=== PATIENT | male | born 1955 | race Caucasian/White ===

== ENCOUNTER 2024-06-08 05:50 | Observation (INO) | payer MEDICARE ==
[2024-06-06 11:17] LABS: ALBUMIN 4.3 g/dL (3.5-5.0)
[2024-06-06 11:18] LABS: APPEARANCE,URINE CLEAR (CLEAR); BILIRUBIN,URINE NEGATIVE (NEGATIVE); COLOR,URINE LIGHT-YELLOW (YELLOW); GLUCOSE, URINE (UA) NEGATIVE (NEGATIVE); KETONES,URINE NEGATIVE (NEGATIVE); LEUKOCYTE ESTERASE ,URINE NEGATIVE Leu/uL (NEGATIVE); NITRATE,URINE NEGATIVE (NEGATIVE); OCCULT BLOOD,URINE NEGATIVE (NEGATIVE); PH,URINE 6.5 (5.0-8.0); PROTEIN,URINE NEGATIVE (NEGATIVE); UROBILINOGEN,URINE 0.2 mg/dL (0.2-1.0)
[2024-06-06 11:20] LABS: ADD UA MICROSCOPIC NO
[2024-06-06 12:07] VITALS: BP 86/58; PULSE 102; RESP 20; TEMP 97.6
[~2024-06-08] VITALS: Ht 182.9 cm; Wt 88.8 kg
[2024-06-08] VITALS (25 sets, daily range): BP systolic 82–172; BP diastolic 40–120; PULSE 70–114; RESP 15–20; TEMP 97.4–99.1
[~2024-06-08 05:50] MED LIST: ALPR1TAB7 PO; ALPR2TAB9 PO; BIOT5000 PO; COQ10 PO; DOCU100C33 PO; ESOM40CA66 PO; FENO145T26 PO; FLUO20CA30 PO; GLUCOSAMINE CHOND PO; LAMO200T51 PO; LORA10TA7 PO; METF-526 PO; OLAN15TA36 PO; OLME40TA18 PO; POTA2TAB6 PO; QUET100T34 PO; SEMA2PEN SQ; SUMATRIPTAN PO; TOPI100T37 PO; [UNRECOGNIZED DRUG - OTHER] PO
[2024-06-08] MEDS: hydroMORPHone 1 MG INJ ONE (06:54)
[2024-06-08] MEDS: proPOFol 10 MG/ML 20ML VIAL IV ONE (06:54)
[2024-06-08] MEDS: MIDAZOLAM HCL 1 MG/ML 2ML VIAL ONE (06:54)
[2024-06-08] MEDS: FENTanyl CITRate PF 50 MCG/1 ML 2ML VIAL ONE (06:54)
[2024-06-08] MEDS: LIDOCAINE PF 100MG/5ML (2%) SYRINGE 5ML ONE (06:55)
[2024-06-08] MEDS ORDERED: SUCCINYLCHOLINE CHLORIDE 20 MG/ML 10 ML VIAL ONE (06:57)
[2024-06-08] MEDS ORDERED: GLYCOPYRROLATE 0.2 MG/ML 5 ML VIAL ONE (06:57)
[2024-06-08] MEDS ORDERED: rocuRONium bROMide 10MG/1ML 5ML VL ONE ×2 (06:58→08:31)
[2024-06-08] MEDS ORDERED: phenylEPHRINE HCL 10 MG/ML 1ML VIAL IV ONE ×2 (07:03→09:29)
[2024-06-08] MEDS ORDERED: ePHEDrine SULFate 50 MG/ML AMPULE ONE (07:03)
[2024-06-08] MEDS ORDERED: ROPivacaine 0.5% 5MG/ML 30ML ONE (07:06)
[2024-06-08] MEDS: SUGAMMADEX SODIUM 200 MG/2 ML VIAL IV ONE (07:08)
[2024-06-08] MEDS: 0.9%NACL 1000ML 1,000 ML IV ONE (07:19)
[2024-06-08] MEDS: CLINDAMYCIN IVPB 900MG/50ML 50 ML IV ONE (07:19)
[2024-06-08] MEDS: TRANEXAMIC ACID 1000MG/10ML IV ONE (08:05)
[2024-06-08] MEDS ORDERED: TRANEXAMIC ACID 1000MG/10ML ONE (08:07)
[2024-06-08] MEDS: acetaMINOPHEN 1,000 MG/100 ML VIAL IV ONE (08:09)
[2024-06-08] MEDS ORDERED: ondanSETRON 4MG INJ ONE (09:46)
[2024-06-08] MEDS ORDERED: dexaMETHasone SOD PHOSPHATE 10MG/ML 1ML VIAL ONE (09:46)
[2024-06-08] MEDS: NALoxone HCL 0.4 MG/1 ML ML ONE (10:56)
[2024-06-08] MEDS ORDERED: ondanSETRON 4MG INJ IVP PRN (11:00)
[2024-06-08] MEDS ORDERED: FERROUS FUMARATE 324 MG TABLET PO PRN (11:00)
[2024-06-08] MEDS ORDERED: CYCLOBENZAPRINE HCL 10 MG TABLET PO PRN (11:00)
[2024-06-08] MEDS ORDERED: PoTASSium chloRIDE 20MEQ/100ML 100 ML IV PRN (11:00)
[2024-06-08] MEDS ORDERED: CALCIUM CARB 500MG PO PRN (11:00)
[2024-06-08] MEDS ORDERED: PoTASSium chl 10% ELIXIR 20MEQ 20 MEQ/15 ML UDCUP PO PRN (11:00)
[2024-06-08] MEDS: ketOROlac 15MG/ML VIAL (15MG/ML) ONE (11:29)
[2024-06-08] MEDS: ketOROlac 15MG/ML VIAL (15MG/ML) IV SCH (11:29)
[2024-06-08] MEDS: INSULIN humuLIN R 100 UNIT/ML 3ML SQ SCH (11:30)
[2024-06-08] MEDS: ePHEDrine SULFate 50 MG/ML AMPULE ONE (12:13)
[2024-06-08] MEDS: 0.9%NACL 1000ML 1,000 ML IV SCH (12:14)
[2024-06-08] MEDS ORDERED: queTIAPine fuMARate 100 MG TAB PO PRN (16:30)
[2024-06-08] MEDS: GABApentin 100 MG CAPSULE PO SCH (16:35)
[2024-06-08] MEDS: ceFAZolin SODIUM 2 GM VIAL IVPB SCH (16:35)
[2024-06-08] MEDS: HYDROcodone/APAP 5/325 1 TAB TABLET PO PRN (16:37)
[2024-06-08] MEDS ORDERED: SUMATRIPTAN SUCCINATE 25 MG PO PRN (18:00)
[2024-06-08] MEDS: doCUSate SODIUM 100 MG CAP PO SCH (20:19)
[2024-06-08] MEDS: FENOFIBRATE NANOCRYSTALLIZED 145 MG TAB PO SCH (20:19)
[2024-06-08] MEDS: OLANZAPINE 30 MG PO SCH (20:19)
[2024-06-09] VITALS: BP 142/75; PULSE 120; RESP 18; TEMP 99.3
[2024-06-09 03:52] LABS: HEMATOCRIT 30.5 % (42-54); MEAN CORPUSCULAR HEMOGLOBIN 26.8 pg (27.0-33.0); MEAN CORPUSCULAR HGB CONC 32.5 g/dL (32.0-36.0); MEAN CORPUSCULAR VOLUME 82.7 fL (79-99); RED BLOOD CELL COUNT(AUTO) 3.69 MIL/uL (4.50-6.20); RED CELL DISTRIBUTION WIDTH 14.5 % (11.0-15.5); WHITE BLOOD COUNT (AUTO) 6.5 K/uL (4.8-10.8)
[2024-06-09 04:00] VITALS: BP 118/64; PULSE 116; RESP 18; TEMP 99.4
[2024-06-09 04:01] LABS: CREATININE 1.3 mg/dL (0.5-1.3); POTASSIUM 3.4 mmol/L (3.5-5.1)
[2024-06-09 08:00] VITALS: BP 121/67; PULSE 115; RESP 19; TEMP 100.1; O2SAT 96
[2024-06-09] MEDS ORDERED: doCUSate SODIUM 100 MG CAP PO SCH (09:00)
[2024-06-09] MEDS: Potassium Gluconate 90 MG PO SCH (09:00)
[2024-06-09] MEDS: BIOTIN 10000 MCG PO SCH (09:00)
[2024-06-09] MEDS: [UNRECOGNIZED DRUG - OTHER] PO SCH (09:00)
[2024-06-09] MEDS: COQ10 PO SCH (09:00)
[2024-06-09] MEDS: Olmesartan 40 MG PO SCH (09:00)
[2024-06-09] MEDS: GLUCOSAMINE CHOND PO SCH (09:00)
[2024-06-09] MEDS: metFORmin HCL 500 MG TAB.SR.24H PO SCH (09:08)
[2024-06-09] MEDS: LORATAdine 10 mg 10 MG TABLET PO SCH (09:08)
[2024-06-09] MEDS: laMOTRigine 100 MG TABLET PO SCH (09:08)
[2024-06-09] MEDS: topIRAMate 100 MG TAB PO SCH (09:08)
[2024-06-09] MEDS: ASPIRIN 325MG EC TAB PO SCH (09:09)
[2024-06-09] MEDS: FLUoxetine HCL 20 MG CAPSULE PO SCH (09:09)
[2024-06-09] MEDS: PANTOPrazole 40 MG TAB DR PO SCH (09:09)
[2024-06-09] MEDS: polyETHYLene GLYCol 3350 17 GM POWD.PACK PO SCH (09:10)
[2024-06-09] MEDS ORDERED: ketOROlac 15MG/ML VIAL (15MG/ML) IV PRN (11:00)
[2024-06-09] MEDS: PoTASSium chloRIDE 20MEQ ER 20 MEQ ERTAB PO PRN (12:48)
[2024-06-09 20:00] VITALS: BP 124/64; PULSE 114; RESP 20; TEMP 98.7; O2SAT 99
[2024-06-10] VITALS (7 sets, daily range): BP systolic 114–142; BP diastolic 54–78; PULSE 74–114; RESP 19–20; TEMP 98.5–99.7; O2SAT 96–99
[2024-06-10] MEDS: hydrOXYzine 10 MG TABLET PO ONE (08:30)
[2024-06-10] MEDS: ALPRAZolam 1 MG TAB PO PRN (11:16)
[2024-06-10] MEDS: GABApentin 100 MG CAPSULE PO SCH (13:49)
[2024-06-10 17:35] LABS: BASOPHILS # (AUTO) 0.02 K/uL (0.00-0.20); BASOPHILS % (AUTO) 0.3 % (0.0-5.0); EOSINOPHILS # (AUTO) 0.04 K/uL (0.00-0.70); EOSINOPHILS % (AUTO) 0.6 % (0.0-8.0); IMMATURE GRANULOCYTE ABSOLUTE 0.03 K/uL (0-1); LYMPHOCYTES # (AUTO) 1.3 K/uL (1.0-4.8); LYMPHOCYTES % (AUTO) 18.6 % (21.0-51.0); MEAN CORPUSCULAR HEMOGLOBIN 27.7 pg (27.0-33.0); MEAN CORPUSCULAR HGB CONC 32.5 g/dL (32.0-36.0); MEAN CORPUSCULAR VOLUME 85.1 fL (79-99); MONOCYTES # (AUTO) 0.7 K/uL (0.1-1.0); MONOCYTES % (AUTO) 9.9 % (3.0-13.0); NEUTROPHILS % (AUTO) 70.2 % (40.0-77.0); PLATELET COUNT (AUTO) 180 K/uL (130-400); RED BLOOD CELL COUNT(AUTO) 3.29 MIL/uL (4.50-6.20); RED CELL DISTRIBUTION WIDTH 14.8 % (11.0-15.5); WHITE BLOOD COUNT (AUTO) 7.2 K/uL (4.8-10.8)
[2024-06-11 00:10] VITALS: BP 133/81; PULSE 117; RESP 24; TEMP 100.2
[2024-06-11 00:45] VITALS: TEMP 99.5
[2024-06-11 03:34] VITALS: BP 140/80; PULSE 108; RESP 20; TEMP 99.3
[2024-06-11 08:00] VITALS: BP 120/70; PULSE 113; RESP 13; TEMP 98.9; O2SAT 99
[2024-06-11] MEDS: traMADol HCL 50 MG TABLET PO PRN (08:14)
[2024-06-11 10:26] LABS: BASOPHILS # (AUTO) 0.05 K/uL (0.00-0.20); BASOPHILS % (AUTO) 0.6 % (0.0-5.0); EOSINOPHILS # (AUTO) 0.14 K/uL (0.00-0.70); EOSINOPHILS % (AUTO) 1.6 % (0.0-8.0); HEMATOCRIT 33.1 % (42-54); IMMATURE GRANULOCYTE ABSOLUTE 0.03 K/uL (0-1); LYMPHOCYTES # (AUTO) 1.7 K/uL (1.0-4.8); MEAN CORPUSCULAR HEMOGLOBIN 27.1 pg (27.0-33.0); MEAN CORPUSCULAR HGB CONC 32.9 g/dL (32.0-36.0); MEAN CORPUSCULAR VOLUME 82.3 fL (79-99); MONOCYTES # (AUTO) 0.7 K/uL (0.1-1.0); MONOCYTES % (AUTO) 7.7 % (3.0-13.0); NEUTROPHILS # (AUTO) 6.3 K/uL (1.8-7.7); NEUTROPHILS % (AUTO) 70.8 % (40.0-77.0); PLATELET COUNT (AUTO) 236 K/uL (130-400); RED BLOOD CELL COUNT(AUTO) 4.02 MIL/uL (4.50-6.20); RED CELL DISTRIBUTION WIDTH 14.3 % (11.0-15.5)
[2024-06-11] MEDS ORDERED: BisaCODYL 10 MG SUPP.RECT RC PRN (11:00)
[2024-06-11 12:00] VITALS: BP 132/71; PULSE 118; RESP 15; TEMP 99.8
[2024-06-11] MEDS ORDERED: HYDR-4060 PO (14:18)
[2024-06-11] MEDS ORDERED: DOCU-116 PO (14:18)
[2024-06-11] MEDS ORDERED: ASPI-891 PO (14:18)
[2024-06-11] MEDS ORDERED: HYDROcodone/APAP 5/325 1 TAB TABLET PO PRN ×2 (15:00)
[2024-06-11 16:00] VITALS: BP 123/75; PULSE 117; RESP 16; TEMP 98.6
[2024-06-15] MEDS ORDERED: Semaglutide (Ozempic) 2 MG SQ SCH (09:00)
== END 2024-06-11 17:52 ==
LOC: DAH 05:50 → DAHIP 05:51 → 4AH 11:25
PROVIDERS: ADMIT Student in an Organized Health Care Education/Training Program; ATTEND Student in an Organized Health Care Education/Training Program
DX: M16.12 Unilateral primary osteoarthritis, left hip (principal); G89.18 Other acute postprocedural pain; D62 Acute posthemorrhagic anemia; J45.909 Unspecified asthma, uncomplicated; I10 Essential (primary) hypertension; K21.9 Gastro-esophageal reflux disease without esophagitis; E66.01 Morbid (severe) obesity due to excess calories; F31.9 Bipolar disorder, unspecified; F41.9 Anxiety disorder, unspecified; G89.29 Other chronic pain; E11.9 Type 2 diabetes mellitus without complications; Z79.899 Other long term (current) drug therapy; Z79.84 Long term (current) use of oral hypoglycemic drugs; Z68.26 Body mass index [BMI] 26.0-26.9, adult
CPT/HCPCS: 36415; 36430; 71045; 73503; 73521; 80048; 81003; 82040; 82948; 84134; 85025; 85027; 86140; 86850; 86900; 86901; 86923; 87086; 87641; 93005; 96365; 96366; 96375; 96376; C1776; G0378; J0330; J1100; J1170; J1885; J2001; J2250; J2310; J2371; J2405; J2704; J2795; J3010; J3490; J7030; P9016; A4215; A4216; A4221; A4222; A4223; A4649; A4663; A4930; A5120; A6255; G0168; J0690

== ENCOUNTER 2024-09-26 07:49 | Observation (INO) | payer MEDICARE ==
[2024-09-21 10:26] LABS: BASOPHILS # (AUTO) 0.06 K/uL (0.00-0.20); BASOPHILS % (AUTO) 1.9 % (0.0-5.0); EOSINOPHILS # (AUTO) 0.18 K/uL (0.00-0.70); EOSINOPHILS % (AUTO) 5.8 % (0.0-8.0); HEMATOCRIT 41.3 % (42-54); IMMATURE GRANULOCYTE ABSOLUTE 0.01 K/uL (0-1); LYMPHOCYTES # (AUTO) 1.2 K/uL (1.0-4.8); LYMPHOCYTES % (AUTO) 37.7 % (21.0-51.0); MEAN CORPUSCULAR HEMOGLOBIN 27.2 pg (27.0-33.0); MEAN CORPUSCULAR HGB CONC 31.7 g/dL (32.0-36.0); MEAN CORPUSCULAR VOLUME 85.7 fL (79-99); MONOCYTES # (AUTO) 0.3 K/uL (0.1-1.0); NEUTROPHILS # (AUTO) 1.4 K/uL (1.8-7.7); NEUTROPHILS % (AUTO) 44.3 % (40.0-77.0); PLATELET COUNT (AUTO) 232 K/uL (130-400); RED BLOOD CELL COUNT(AUTO) 4.82 MIL/uL (4.50-6.20); RED CELL DISTRIBUTION WIDTH 14.8 % (11.0-15.5); WHITE BLOOD COUNT (AUTO) 3.1 K/uL (4.8-10.8)
[2024-09-21 10:34] VITALS: BP 130/69; PULSE 64; RESP 18; TEMP 97.7
[2024-09-21 10:35] LABS: INR 1.02 (0.85-1.15)
[2024-09-21 10:37] LABS: PARTIAL THROMBOPLASTIN TIME 27.3 SEC (26.3-35.5)
[2024-09-21 11:07] LABS: CREATININE 1.2 mg/dL (0.5-1.3); POTASSIUM 4.4 mmol/L (3.5-5.1)
--- NOTE | 2024-09-21 15:03 | EKG ---
[facility] Test Date: 2024-09-21 Test Time: 11:04:41 Pat Name: HUMBERTO ESCALERA Department: [facility] Room: Gender: M Mill Feeder: [id number] : 1955 Requested By: KAROL PEREZ Order Number: [id number] Reading MD: Jacek Tamez Measurements Intervals Dearing Rate: 86 P: 43 DE: 198 QRS: -1 QRSD: 80 T: 54 QT: 358 QTc: 428 Interpretive Statements Normal sinus rhythm Compared to ECG 06/11/2024 10:54:37 Sinus tachycardia no longer present Electronically Signed On 09-22-2024 14:08:21 PHYTOCHEMISTRY PROFESSOR by Jacek Tamez Please click the below link to view image of tracing.
[~2024-09-26] VITALS: Ht 180.3 cm; Wt 97.4 kg
[2024-09-26] VITALS (28 sets, daily range): BP systolic 103–149; BP diastolic 48–97; PULSE 60–107; RESP 12–20; TEMP 97–98.6; O2SAT 98
[~2024-09-26 07:49] MED LIST changes: +ACET-2247 PO; -ALPR2TAB9 PO; -COQ10 PO; +FERS325 PO; +GABA-529 PO; +GLUC-268 PO; -GLUCOSAMINE CHOND PO; +METF-446 PO; -METF-526 PO; +MVIT PO; +NAPR220C62 PO; -OLAN15TA36 PO; +OLAN15TA98 PO; +SUMA50TA17 PO; -SUMATRIPTAN PO; +UBID10CA6 PO; +VALB80CA PO; -[UNRECOGNIZED DRUG - OTHER] PO
[2024-09-26] MEDS: ceFAZolin SODIUM 1 GM VIAL ONE (08:13)
[2024-09-26] MEDS: 0.9%NACL 1000ML 1,000 ML IV ONE (08:31)
[2024-09-26] MEDS: FAMOTIDINE 20MG VIAL IV ONE (08:46)
[2024-09-26] MEDS: acetaMINOPHEN 100 ML ONE (08:46)
[2024-09-26] MEDS ORDERED: ROPivacaine 0.5% 5MG/ML 30ML ONE (08:47)
[2024-09-26] MEDS ORDERED: ketaMINE HCL 100 MG/ML 5ML VIAL IJ ONE (08:47)
[2024-09-26] MEDS ORDERED: LIDOCAINE PF 100MG/5ML (2%) SYRINGE 5ML ONE (08:51)
[2024-09-26] MEDS ORDERED: rocuRONium bROMide 10MG/1ML 5ML VL ONE ×2 (08:52→09:39)
[2024-09-26] MEDS ORDERED: FENTanyl CITRate PF 50 MCG/1 ML 2ML VIAL ONE (08:52)
[2024-09-26] MEDS ORDERED: proPOFol 10 MG/ML 20ML VIAL IV ONE (08:52)
[2024-09-26] MEDS ORDERED: dexaMETHasone SOD PHOSPHATE 10MG/ML 1ML VIAL ONE (09:22)
[2024-09-26] MEDS ORDERED: ondanSETRON 4MG INJ ONE (09:22)
[2024-09-26] MEDS: TRANEXAMIC ACID 1000MG/10ML ONE ×2 (09:25→11:30)
[2024-09-26] MEDS ORDERED: PoTASSium chl 10% ELIXIR 20MEQ 20 MEQ/15 ML UDCUP PO PRN (09:30)
[2024-09-26] MEDS ORDERED: ALPRAZolam 1 MG TAB PO PRN (09:30)
[2024-09-26] MEDS: ceFAZolin SODIUM 2 GM VIAL ONE (09:30)
[2024-09-26] MEDS ORDERED: FERROUS FUMARATE 324 MG TABLET PO PRN (09:30)
[2024-09-26] MEDS ORDERED: PoTASSium chloRIDE 20MEQ ER 20 MEQ ERTAB PO PRN (09:30)
[2024-09-26] MEDS ORDERED: PoTASSium chloRIDE 20MEQ/100ML 100 ML IV PRN (09:30)
[2024-09-26] MEDS ORDERED: ondanSETRON 4MG INJ IVP PRN (09:30)
[2024-09-26] MEDS ORDERED: CALCIUM CARB 500MG PO PRN (09:30)
[2024-09-26] MEDS ORDERED: DiphenhydrAMINE HCL 50 MG/ML VIAL IVP PRN (09:30)
[2024-09-26] MEDS: 0.9%NACL 1000ML 1,000 ML IV SCH (09:30)
[2024-09-26] MEDS ORDERED: phenylEPHRINE HCL 10 MG/ML 1ML VIAL IV ONE (09:44)
[2024-09-26] MEDS ORDERED: GLYCOPYRROLATE 0.2 MG/ML 5 ML VIAL ONE (11:31)
[2024-09-26] MEDS ORDERED: NEOSTIGMINE METHYLSULFATE 1MG/ML IV ONE (11:31)
--- NOTE | 2024-09-26 12:21 | OP ---
Operative Note: DATE OF PROCEDURE: 09/26/24 SURGEON: KAROL PEREZ MD INJURY/SAFETY HAZARD ASSESSMENT: Federico Castro and Hue Tafoya ANESTHESIA: General and fascia iliaca block ANESTHESIOLOGIST/CLINICAL RESOURCE MANAGER: Nyasia Jordan PREOPERATIVE DIAGNOSIS: Right hip osteoarthritis POSTOPERATIVE DIAGNOSIS: Right hip osteoarthritis PROCEDURE: Right total hip arthroplasty ESTIMATED BLOOD LOSS: 200 cc INDICATIONS: 68-year-old male with history of bilateral hip osteoarthritis failing conservative management. Patient previously underwent left total hip arthroplasty and did well from this. Patient was seen in clinic and discussed moving on to right total hip arthroplasty. After discussion of the risks, benefits, and alternatives, the patient voluntarily agreed to undergo the aforementioned procedure. IMPLANTS: Bowman and Nephew 56 mm acetabular shell with 6.5 screws x2 central hole cover. 40 mm Oxinium head with a minus four sleeve on anthology size 8 standard offset stem DESCRIPTION OF PROCEDURE: Patient was properly identified in the preoperative holding area. Surgical site marking was verified and surgery consent reviewed. The patient was then taken to the operating room and placed in supine position on the OR table. After induction of general anesthesia, preoperative antibiotics were given. The patient was then transitioned in the lateral decubitus position with the right side up. All bony prominences were well-padded. Right lower extremity was then prepped and draped in the usual sterile fashion. Surgical time out was done verifying correct surgery, side, site, and location to be performed. We then began the procedure by making approximately 15 cm long incision centered over the greater trochanter. Here we came sharply through skin down to the fascia. Hemostasis was then achieved using Bovie electrocautery. We then incised fascia in line with the skin incision and finger split the tensor muscle proximally. We then placed our Charnley retractor. At this point we identified the vastus ridge and began elevating the full-thickness soft tissue flap off of the vastus ridge, splitting the vastus lateralis and gluteus muscles as necessary. We then proceeded to externally rotate the femur while making this flap. We resected part of the anterior capsule. The femoral head and neck was then delivered into view. We then dislocated the hip and performed a femoral neck osteotomy approximately half fingerbreadth proximal lesser trochanter. We then placed our retractors around the superior and anterior portion of the acetabulum and began to remove the labrum circumferentially. We then began reaming the acetabulum where we reamed up to a size 56 ensuring appropriate anteversion and abduction. We then proceeded to trial with the size 56 acetabular component and this appeared to sit well. We opened our size 56 acetabular component and after irrigating out the wound malleted this into place. It appeared to have good press-fit however we elected to place 6.5 screws x2. We drilled and filled the screws in standard fashion in the posterior superior portion of the cup. We then placed the manhole cover on the center of the cup. The wound was thoroughly irrigated out further and we placed the acetabular liner and impacted this in place in standard fashion. We then proceeded to reposition our retractors to elevate the proximal femur out of the wound. We then used the box chisel and canal finder to began preparing the femoral side and sequentially broached up to the aforementioned size stem. Once we felt we had good fit, fill, and control of the femur with the stem in place we then used our trial head component and reduce the hip. However we noticed this to be longer than the contralateral side, so we dislocated the hip and trialed once more using the minus option for the femoral head. Upon reduction, we had appropriate soft tissue tensioning, limb length and stable range of motion. We therefore dislocated the hip once more removed our trial components, thoroughly irrigated the out the wound, and placed our final components in standard fashion. The hip was then reduced with the final components in place. It was found to be stable through range of motion with appropriate soft tissue tensioning and appropriate limb length. At this point we placed a bump under the knee and the foot on the male with a stack of towels to allow for internal rotation. We repaired the abductors back to the greater trochanter using #5 Ethibond. We then repaired the rent in the vastus lateralis and gluteus muscles using #1 Vicryl in a running fashion. We removed our Charnley retractor and began to repair the IT band using #1 Vicryl in interrupted etxian-nc-qowee fashion. At this point we began to close her subcutaneous tissue using 2-0 Vicryl. Running 3-0 Monocryl in subcuticular fashion with Dermabond placed over this for the skin. Island barrier dressing was then applied. Patient was returned to supine position, awakened from anesthesia, and taken to the recovery room in stable condition. KAROL PEREZ MD Sep 26, 2024 12:21
[2024-09-26] MEDS: MEPERIDINE-PF 25 MG/ML SYG ONE (13:04)
[2024-09-26] MEDS: ketOROlac 15MG/ML VIAL (15MG/ML) IV SCH (13:07)
[2024-09-26] MEDS: ketOROlac 15MG/ML VIAL (15MG/ML) ONE (13:10)
[2024-09-26] MEDS: HYDROcodone/APAP 5/325 1 TAB TABLET PO PRN (14:32)
[2024-09-26] MEDS: GABApentin 100 MG CAPSULE PO SCH (14:39)
[2024-09-26] MEDS: ceFAZolin SODIUM 2 GM VIAL IVP SCH (14:41)
--- NOTE | 2024-09-26 16:40 | NUR ---
ORTHO COORDINATOR: TEACHING REGARDING DVT AND PNEUMONIA PREVENTION, PAIN MANAGEMENT AND PAIN EXPECTATIONS. PATIENT IN BED. SIGNIFICANT OTHER AT BEDSIDE. INCENTIVE SPIROMETER ON BEDSIDE TRAY AND B SCD SLEEVES IN PLACE AND FUNCTIONING. PATIENT RATES CURRENT PAIN 7/10. RECENTLY PROVIDED PAIN MEDICATION. DISCUSSED WITH PATIENT FINDING THE RIGHT COMBINATION BETWEEN OF MEDICATIONS. PATIENT VERBALIZED UNDERSTANDING. 1645 PAIN OF 7/10 REPORTED TO PRIMARY NURSE. PRIMARY NURSE ACKNOWLEDGED COMMUNICATION.
--- NOTE | 2024-09-26 17:10 | HMCIMG ---
HIP UNILAT 4VW RIGHT REASON: RT TOTAL HIP ARTHROPLASTY. COMPARISON: None TECHNIQUE: Fluoroscopic images of right hip were obtained. FINDINGS: Please see procedure report by referring physician. IMPRESSION: Intraoperative films.
[2024-09-26] MEDS: metFORmin HCL 500 MG TABLET PO SCH (20:54)
[2024-09-26] MEDS: FENOFIBRATE NANOCRYSTALLIZED 145 MG TAB PO SCH (20:54)
[2024-09-26] MEDS: doCUSate SODIUM 100 MG CAP PO SCH (20:54)
[2024-09-26] MEDS: ASPIRIN 325MG TAB PO SCH (20:54)
[2024-09-26] MEDS: OLANZAPINE 30 MG PO SCH (21:00)
[2024-09-27 04:00] VITALS: BP 129/76; PULSE 81; RESP 16; TEMP 99
[2024-09-27 05:41] LABS: HEMATOCRIT 28.5 % (42-54); MEAN CORPUSCULAR HEMOGLOBIN 27.4 pg (27.0-33.0); MEAN CORPUSCULAR HGB CONC 32.3 g/dL (32.0-36.0); MEAN CORPUSCULAR VOLUME 84.8 fL (79-99); RED BLOOD CELL COUNT(AUTO) 3.36 MIL/uL (4.50-6.20); RED CELL DISTRIBUTION WIDTH 14.9 % (11.0-15.5); WHITE BLOOD COUNT (AUTO) 6.2 K/uL (4.8-10.8)
[2024-09-27 05:56] LABS: CREATININE 1.2 mg/dL (0.5-1.3); POTASSIUM 3.5 mmol/L (3.5-5.1)
[2024-09-27 07:25] VITALS: BP 144/78; PULSE 85; RESP 18; TEMP 98.8
--- NOTE | 2024-09-27 08:02 | PN ---
Ortho postop day one. This morning patient is still in bed however he is awake alert and oriented reporting adequate pain control but stated he did not sleep much overnight. Vital signs have remained stable he is afebrile. Laboratory results reviewed. Noted to have a drop in hemoglobin and hematocrit as expected after total hip arthroplasty. Currently is asymptomatic. We will continue to observe and treat per protocol as necessary. The dressing is intact. Distal neurovascular exam intact. Voiding on his own without difficulty. Operative findings discussed with the patient. Instructed on incentive spirometry. Ice present to op-site. Anticipated discharge goal is skilled nurse facility/PT. Assessment: Status post right total hip arthroplasty Acute postoperative blood loss anemia. Plan: Continue with Dr. Cadet's total hip arthroplasty protocol. Acute postoperative blood loss anemia addressed with the protocol as necessary Vitals/Labs Vital Signs Date Time Temp Pulse Resp B/P (MAP) Pulse Ox O2 Delivery O2 Flow Rate FiO2 09/27/24 04:00 99.0 81 16 129/76 96 Room Air 21 09/26/24 20:00 2 Laboratory Tests 09/27/24 05:20 Medications Current Medications Cefazolin Sodium 1 gm STK-MED ONCE .ROUTE; Start 09/26/24 at 08:13; Stop 09/26/24 at 08:13; Status DC Cefazolin Sodium 2 gm STK-MED ONCE .ROUTE Last administered on 09/26/24at 09:30; Start 09/26/24 at 08:15; Stop 09/26/24 at 08:16; Status DC Sodium Chloride 1,000 ml @ As Directed STK-MED ONCE IV Last administered on 09/26/24at 08:31; Start 09/26/24 at 08:15; Stop 09/26/24 at 08:16; Status DC Acetaminophen 100 ml @ As Directed STK-MED ONCE .ROUTE; Start 09/26/24 at 08:46; Stop 09/26/24 at 08:46; Status DC Tranexamic Acid 1,000 mg STK-MED ONCE .ROUTE Last administered on 09/26/24at 09:25; Start 09/26/24 at 08:46; Stop 09/26/24 at 08:46; Status DC Famotidine 20 mg STK-MED ONCE IV; Start 09/26/24 at 08:46; Stop 09/26/24 at 08:46; Status DC Tranexamic Acid 1,000 mg STK-MED ONCE .ROUTE Last administered on 09/26/24at 11:30; Start 09/26/24 at 08:46; Stop 09/26/24 at 08:46; Status DC Ropivacaine 150 mg STK-MED ONCE .ROUTE; Start 09/26/24 at 08:47; Stop 09/26/24 at 08:47; Status DC Ketamine HCl 500 mg STK-MED ONCE IJ; Start 09/26/24 at 08:47; Stop 09/26/24 at 08:48; Status DC Lidocaine HCl 100 mg STK-MED ONCE .ROUTE; Start 09/26/24 at 08:51; Stop 09/26/24 at 08:51; Status DC Propofol 200 mg STK-MED ONCE IV; Start 09/26/24 at 08:52; Stop 09/26/24 at 08:52; Status DC Rocuronium [place] 50 mg STK-MED ONCE .ROUTE; Start 09/26/24 at 08:52; Stop 09/26/24 at 08:52; Status DC Fentanyl Citrate 100 mcg STK-MED ONCE .ROUTE; Start 09/26/24 at 08:52; Stop 09/26/24 at 08:52; Status DC Sodium Chloride 1,000 ml @ 100 mls/hr Q10H IV Last administered on 09/27/24at 05:29; Start 09/26/24 at 09:30; Stop 09/27/24 at 09:29 Polyethylene Glycol 17 gm DAILY PO; Start 09/27/24 at 09:00; Stop 10/27/24 at 08:59 Bisacodyl 10 mg DAILY PRN RC; Start 09/29/24 at 09:30; Stop 10/29/24 at 09:29 Aspirin 325 mg BID PO Last administered on 09/26/24at 20:54; Start 09/26/24 at 21:00; Stop 10/26/24 at 20:59 Ketorolac Tromethamine 15 mg Q6H PRN IV; Start 09/27/24 at 09:30; Stop 10/01/24 at 09:29 Ferrous Fumarate 324 mg DAILY PRN PO; Start 09/26/24 at 09:30; Stop 10/26/24 at 09:29 Calcium Carbonate 500 mg Q12H PRN PO; Start 09/26/24 at 09:30; Stop 10/26/24 at 09:29 Diphenhydramine HCl 25 mg Q6H PRN IVP; Start 09/26/24 at 09:30; Stop 10/26/24 at 09:29 Ondansetron HCl 4 mg Q6H PRN IVP; Start 09/26/24 at 09:30; Stop 10/26/24 at 09:29 Cefazolin Sodium 2 gm Q8H IVP Last administered on 09/26/24at 20:56; Start 09/26/24 at 14:30; Stop 09/26/24 at 22:31; Status DC Gabapentin 100 mg TID PO Last administered on 09/26/24at 21:12; Start 09/26/24 at 14:00; Stop 10/26/24 at 13:59 Docusate Sodium 100 mg BID PO Last administered on 09/26/24at 20:54; Start 09/26/24 at 21:00; Stop 10/26/24 at 20:59 Ketorolac Tromethamine 15 mg Q8H IV Last administered on 09/27/24at 00:44; Start 09/26/24 at 09:30; Stop 09/27/24 at 01:31; Status DC Potassium Chloride 100 ml @ 100 mls/hr AD PRN IV; Start 09/26/24 at 09:30; Stop 10/26/24 at 09:29 Potassium Chloride 20 meq AD PRN PO; Start 09/26/24 at 09:30; Stop 10/26/24 at 09:29 Potassium Chloride 20 meq AD PRN PO; Start 09/26/24 at 09:30; Stop 10/26/24 at 09:29 Acetaminophen/ Hydrocodone Bitart Q4H PRN PO Last administered on 09/27/24at 02:52; Start 09/26/24 at 09:30; Stop 10/01/24 at 09:29 Alprazolam 2 mg TID PRN PO; Start 09/26/24 at 09:30; Stop 10/03/24 at 09:29 Fenofibrate 145 mg HS PO Last administered on 09/26/24at 20:54; Start 09/26/24 at 21:00; Stop 10/26/24 at 20:59 Fluoxetine HCl 20 mg AM PO; Start 09/27/24 at 09:00; Stop 10/27/24 at 08:59 Loratadine 10 mg AM PO; Start 09/27/24 at 09:00; Stop 10/27/24 at 08:59 Multivitamins Therapeutic 1 tab DAILY PO; Start 09/27/24 at 09:00; Stop 10/27/24 at 08:59 Quetiapine Fumarate 100 mg BID PRN PO; Start 09/26/24 at 09:30; Stop 10/26/24 at 09:29 Topiramate 100 mg AM PO; Start 09/27/24 at 09:00; Stop 10/27/24 at 08:59 Home Med (Biotin 10,000 MCG) AM PO; Start 09/27/24 at 09:00; Stop 10/27/24 at 08:59 Pantoprazole Sodium 40 mg DAILY PO; Start 09/27/24 at 09:00; Stop 10/27/24 at 08:59 Ferrous Sulfate 325 mg DAILY PO; Start 09/27/24 at 09:00; Stop 10/27/24 at 08:59 Home Med (Glucos Sul 2Kcl/ MSM/Chond/C/Mn (Glucosam... DAILY PO; Start 09/27/24 at 09:00; Stop 10/27/24 at 08:59 Lamotrigine 200 mg DAILY PO; Start 09/27/24 at 09:00; Stop 10/27/24 at 08:59 Metformin HCl 1,000 mg BID PO Last administered on 09/26/24at 20:54; Start 09/26/24 at 21:00; Stop 10/26/24 at 20:59 Home Med (Olanzapine 30 MG) HS PO; Start 09/26/24 at 21:00; Stop 10/26/24 at 20:59 Losartan Potassium 100 mg DAILY PO; Start 09/27/24 at 09:00; Stop 10/27/24 at 08:59 Home Med (Potassium Gluconate 90 MG) AM PO; Start 09/27/24 at 09:00; Stop 10/27/24 at 08:59 Home Med (Semaglutide (Ozempic) 0.25 MG) QWEEK SQ; Start 10/03/24 at 09:00; Stop 11/02/24 at 08:59 Sumatriptan Succinate 50 mg DAILY PRN PO; Start 09/26/24 at 10:00; Stop 10/26/24 at 09:59 Home Med (Ubidecarenone (Co Q-10) 10 MG) DAILY PO; Start 09/27/24 at 09:00; Stop 10/27/24 at 08:59 Home Med (Valbenazine Tosylate (Ingrez... DAILY PO; Start 09/27/24 at 09:00; Stop 10/27/24 at 08:59 Ondansetron HCl 4 mg STK-MED ONCE .ROUTE; Start 09/26/24 at 09:22; Stop 09/26/24 at 09:22; Status DC Dexamethasone Sodium Phosphate 10 mg STK-MED ONCE .ROUTE; Start 09/26/24 at 09:22; Stop 09/26/24 at 09:22; Status DC Rocuronium [place] 50 mg STK-MED ONCE .ROUTE; Start 09/26/24 at 09:39; Stop 09/26/24 at 09:39; Status DC Phenylephrine HCl 10 mg STK-MED ONCE IV; Start 09/26/24 at 09:44; Stop 09/26/24 at 09:45; Status DC Glycopyrrolate 1 mg STK-MED ONCE .ROUTE; Start 09/26/24 at 11:31; Stop 09/26/24 at 11:31; Status DC Neostigmine Methylsulfate 10 mg STK-MED ONCE IV; Start 09/26/24 at 11:31; Stop 09/26/24 at 11:31; Status DC Meperidine HCl 25 mg STK-MED ONCE .ROUTE Last administered on 09/26/24at 13:04; Start 09/26/24 at 13:00; Stop 09/26/24 at 13:00; Status DC Ketorolac Tromethamine 15 mg STK-MED ONCE .ROUTE; Start 09/26/24 at 13:07; Stop 09/26/24 at 13:07; Status DC LIZ PAGE NP Sep 27, 2024 08:02
[2024-09-27 08:10] VITALS: O2SAT 98
[2024-09-27] MEDS: FLUoxetine HCL 20 MG CAPSULE PO SCH (08:50)
[2024-09-27] MEDS: FERROUS SULFATE 325 MG TABLET.DR PO SCH (08:50)
[2024-09-27] MEDS: laMOTRigine 100 MG TABLET PO SCH (08:50)
[2024-09-27] MEDS: MULTIVITAMIN TABLET PO SCH (08:50)
[2024-09-27] MEDS: LoSARTan 100 MG TABLET PO SCH (08:51)
[2024-09-27] MEDS: PANTOPrazole 40 MG TAB DR PO SCH (08:51)
[2024-09-27] MEDS: polyETHYLene GLYCol 3350 17 GM POWD.PACK PO SCH (08:52)
[2024-09-27] MEDS: LORATAdine 10 mg 10 MG TABLET PO SCH (08:52)
[2024-09-27] MEDS: topIRAMate 100 MG TAB PO SCH (08:52)
[2024-09-27] MEDS: POTASSIUM GLUCONATE 90 MG PO SCH (08:53)
[2024-09-27] MEDS: GLUCOS SUL PO SCH (08:53)
[2024-09-27] MEDS: [UNRECOGNIZED DRUG - OTHER] PO SCH (08:53)
[2024-09-27] MEDS: (Biotin 10,000 MCG) PO SCH (08:53)
[2024-09-27] MEDS: UBIDECARENONE 10 MG PO SCH (08:53)
[2024-09-27] MEDS: VALBENAZINE TOSYLATE 80 MG PO SCH (08:54)
[2024-09-27] MEDS ORDERED: ketOROlac 15MG/ML VIAL (15MG/ML) IV PRN (09:30)
--- NOTE | 2024-09-27 10:27 | HMCIMG ---
HIP BILAT 2VW HISTORY: Hip injury COMPARISON: None TECHNIQUE: 2 images of bilateral hips were obtained. FINDINGS: Total bilateral hip replacement changes are seen. There is no acute displaced fracture or dislocation. Degenerative changes are seen. IMPRESSION: 1. Findings as described above.
--- NOTE | 2024-09-27 11:15 | NUR ---
CHENG [employer] DC PRODUCTION WORKER SPOKE TO PT. PT IS INDEPENDENT PRIOR TO SURGERY, LIVES AT HOME W/SPOUSE. PT HAS A WALKER, BEDSIDE COMMODE. DENIES ANY OTHER EQUIPMENT/SERVICES. FEELS SAFE TO GO BACK HOME, STILL DRIVE, ABLE TO ASSIST WITH TRANSPORTATION AND NEEDS NECESSARY. DISCUSSED MD RECOMMENDATION FOR SNF, PT AGREEABLE, VERBALIZED PT WENT TO [facility], WOULD LIKE TO GO BACK TO SAME FACILITY, CONSENT SIGNED PHAM FOR [facility]. [facility] SN[facility] ONCE APPROVED. Addendum: 09/27/24 at 1221 by VIOLET ESCAMILLA LVN CM Amended: Links added.
[2024-09-27 11:28] VITALS: BP 123/69; PULSE 94; RESP 18; TEMP 98.6
--- NOTE | 2024-09-27 11:45 | NUR ---
CM NOTE: [facility] PENDING APPROVAL CM DC FINANCE INTERN OBTAINED CONSENT PHAM FOR [facility]. CM DC FINANCE INTERN SENT ORDER, CLINICALS, PT, PASRR TO [facility] AND [facility] [place]. CM SPOKE TO [facility], WILL COME EVALUATE PT, AWARE DCP ONCE APPROVED. PT PENDING APPROVAL AND ACCEPTANCE. PRIMARY NURSE RUPALI ROSE. DR PEREZ UPDATED. CM TO CONTINUE TO FOLLOW UP.
[2024-09-27 15:30] VITALS: BP 144/79; PULSE 100; RESP 18; TEMP 98.6
--- NOTE | 2024-09-27 17:00 | NUR ---
ORTHO COORDINATOR: REINFORCE TEACHING. PATIENT IN BED, SIGNIFICANT OTHER AT BEDSIDE. PATIENT UTILIZING INCENTIVE SPIROMETER PRESCRIBED. B SCD SLEEVES IN PLACE. ONE NOT INFLATING, MACHINE REPLACED. BOTH SLEEVES FUNCTIONING. PATIENT HAS BEEN PERFORMING FOOT FLEXION AND EXTENSION. PAIN CONTROLLED. PENDING PLACEMENT AT SNF. REINFORCED IMPORTANCE OF PREMEDICATION PRIOR TO PHYSICAL THERAPY WHILE IN REHAB AND ONCE RELEASED. PATIENT VERBALIZED UNDERSTANDING. NO ADDITIONAL QUESTIONS OR CONCERNS.
[2024-09-27 20:00] VITALS: BP 155/86; PULSE 102; RESP 19; TEMP 99.7; O2SAT 97
[2024-09-27] MEDS: queTIAPine fuMARate 100 MG TAB PO PRN (23:20)
[2024-09-28] VITALS (7 sets, daily range): BP systolic 108–135; BP diastolic 61–75; PULSE 91–103; RESP 17–19; TEMP 97.9–99.9; O2SAT 97
--- NOTE | 2024-09-28 06:34 | NUR ---
PATIENT REFUSING TO GET OOB AT THIS TIME. PATIENT STATES HE FEELS GROGGY. NURSE WILL ATTEMPT TO GET OOB. PATIENT AGREED AT THIS TIME TO TRY LATER. Addendum: 09/28/24 at 0638 by ANGELA WARD RN RN Amended: Links added.
--- NOTE | 2024-09-28 12:39 | NUR ---
JOSE NOTE: [facility] PENDING APPROVAL CM SPOKE TO [facility] [place], STILL PENDING APPROVAL AT THIS TIME, REP AWARE PT WILL NEED FACILITY [facility] FOR TRANSFER ONCE PT READY TO DC. PRIMARY NURSE INGRID AWARE. CM TO CONTINUE TO FOLLOW UP. Addendum: 09/28/24 at 1239 by VIOLET ESCAMILLA LVN CM Amended: Links added.
--- NOTE | 2024-09-28 14:12 | PN ---
Ortho postop day two. This afternoon patient is in chair at bedside. Reports he is doing well, pain is controlled. Voiding on his own without difficulty. Reports he was passing gas and has had multiple bowel movements. Vital signs have remained stable he is afebrile. Mildly hypotensive earlier today. NAD, A&Ox3 nonlabored breathing. Right lower extremity: -The dressing is intact. -Distal neurovascular exam intact. -No significant edema Ambulated with physical therapy today 65/75 feet in the a.m./p.m. Discharge planning is for [place] once accepted/insurance approval. Assessment: POD2 status post right total hip arthroplasty Acute postoperative blood loss anemia. Plan: Continue with Dr. Cadet's total hip arthroplasty protocol. Acute postoperative blood loss anemia addressed with the protocol as necessary. Patient maybe discharged to [place] today once authorization/acceptance complete. Vitals/Labs Vital Signs Date Time Temp Pulse Resp B/P (MAP) Pulse Ox O2 Delivery O2 Flow Rate FiO2 09/28/24 12:00 98.8 96 19 119/62 95 Room Air 09/28/24 08:00 0 21 Medications Current Medications Cefazolin Sodium 1 gm STK-MED ONCE .ROUTE; Start 09/26/24 at 08:13; Stop 09/26/24 at 08:13; Status DC Cefazolin Sodium 2 gm STK-MED ONCE .ROUTE Last administered on 09/26/24at 09:30; Start 09/26/24 at 08:15; Stop 09/26/24 at 08:16; Status DC Sodium Chloride 1,000 ml @ As Directed STK-MED ONCE IV Last administered on 09/26/24at 08:31; Start 09/26/24 at 08:15; Stop 09/26/24 at 08:16; Status DC Acetaminophen 100 ml @ As Directed STK-MED ONCE .ROUTE; Start 09/26/24 at 08:46; Stop 09/26/24 at 08:46; Status DC Tranexamic Acid 1,000 mg STK-MED ONCE .ROUTE Last administered on 09/26/24at 09:25; Start 09/26/24 at 08:46; Stop 09/26/24 at 08:46; Status DC Famotidine 20 mg STK-MED ONCE IV; Start 09/26/24 at 08:46; Stop 09/26/24 at 08:46; Status DC Tranexamic Acid 1,000 mg STK-MED ONCE .ROUTE Last administered on 09/26/24at 11:30; Start 09/26/24 at 08:46; Stop 09/26/24 at 08:46; Status DC Ropivacaine 150 mg STK-MED ONCE .ROUTE; Start 09/26/24 at 08:47; Stop 09/26/24 at 08:47; Status DC Ketamine HCl 500 mg STK-MED ONCE IJ; Start 09/26/24 at 08:47; Stop 09/26/24 at 08:48; Status DC Lidocaine HCl 100 mg STK-MED ONCE .ROUTE; Start 09/26/24 at 08:51; Stop 09/26/24 at 08:51; Status DC Propofol 200 mg STK-MED ONCE IV; Start 09/26/24 at 08:52; Stop 09/26/24 at 08:52; Status DC Rocuronium [place] 50 mg STK-MED ONCE .ROUTE; Start 09/26/24 at 08:52; Stop 09/26/24 at 08:52; Status DC Fentanyl Citrate 100 mcg STK-MED ONCE .ROUTE; Start 09/26/24 at 08:52; Stop 09/26/24 at 08:52; Status DC Sodium Chloride 1,000 ml @ 100 mls/hr Q10H IV Last administered on 09/27/24at 05:29; Start 09/26/24 at 09:30; Stop 09/27/24 at 09:29; Status DC Polyethylene Glycol 17 gm DAILY PO Last administered on 09/28/24at 08:48; Start 09/27/24 at 09:00; Stop 10/27/24 at 08:59 Bisacodyl 10 mg DAILY PRN RC; Start 09/29/24 at 09:30; Stop 10/29/24 at 09:29 Aspirin 325 mg BID PO Last administered on 09/28/24at 08:49; Start 09/26/24 at 21:00; Stop 10/26/24 at 20:59 Ketorolac Tromethamine 15 mg Q6H PRN IV; Start 09/27/24 at 09:30; Stop 10/01/24 at 09:29 Ferrous Fumarate 324 mg DAILY PRN PO; Start 09/26/24 at 09:30; Stop 10/26/24 at 09:29 Calcium Carbonate 500 mg Q12H PRN PO; Start 09/26/24 at 09:30; Stop 10/26/24 at 09:29 Diphenhydramine HCl 25 mg Q6H PRN IVP; Start 09/26/24 at 09:30; Stop 10/26/24 at 09:29 Ondansetron HCl 4 mg Q6H PRN IVP; Start 09/26/24 at 09:30; Stop 10/26/24 at 09:29 Cefazolin Sodium 2 gm Q8H IVP Last administered on 09/26/24at 20:56; Start 09/26/24 at 14:30; Stop 09/26/24 at 22:31; Status DC Gabapentin 100 mg TID PO Last administered on 09/28/24at 08:49; Start 09/26/24 at 14:00; Stop 10/26/24 at 13:59 Docusate Sodium 100 mg BID PO Last administered on 09/28/24at 08:49; Start 09/26/24 at 21:00; Stop 10/26/24 at 20:59 Ketorolac Tromethamine 15 mg Q8H IV Last administered on 09/27/24at 00:44; Start 09/26/24 at 09:30; Stop 09/27/24 at 01:31; Status DC Potassium Chloride 100 ml @ 100 mls/hr AD PRN IV; Start 09/26/24 at 09:30; Stop 10/26/24 at 09:29 Potassium Chloride 20 meq AD PRN PO; Start 09/26/24 at 09:30; Stop 10/26/24 at 09:29 Potassium Chloride 20 meq AD PRN PO; Start 09/26/24 at 09:30; Stop 10/26/24 at 09:29 Acetaminophen/ Hydrocodone Bitart Q4H PRN PO Last administered on 09/28/24at 08:48; Start 09/26/24 at 09:30; Stop 10/01/24 at 09:29 Alprazolam 2 mg TID PRN PO; Start 09/26/24 at 09:30; Stop 10/03/24 at 09:29 Fenofibrate 145 mg HS PO Last administered on 09/27/24at 20:10; Start 09/26/24 at 21:00; Stop 10/26/24 at 20:59 Fluoxetine HCl 20 mg AM PO Last administered on 09/28/24at 08:49; Start 09/27/24 at 09:00; Stop 10/27/24 at 08:59 Loratadine 10 mg AM PO Last administered on 09/28/24at 08:49; Start 09/27/24 at 09:00; Stop 10/27/24 at 08:59 Multivitamins Therapeutic 1 tab DAILY PO Last administered on 09/28/24at 08:49; Start 09/27/24 at 09:00; Stop 10/27/24 at 08:59 Quetiapine Fumarate 100 mg BID PRN PO Last administered on 09/27/24at 23:20; Start 09/26/24 at 09:30; Stop 10/26/24 at 09:29 Topiramate 100 mg AM PO Last administered on 09/28/24at 08:49; Start 09/27/24 at 09:00; Stop 10/27/24 at 08:59 Home Med (Biotin 10,000 MCG) AM PO; Start 09/27/24 at 09:00; Stop 10/27/24 at 08:59 Pantoprazole Sodium 40 mg DAILY PO Last administered on 09/28/24at 08:49; Start 09/27/24 at 09:00; Stop 10/27/24 at 08:59 Ferrous Sulfate 325 mg DAILY PO Last administered on 09/28/24at 08:49; Start 09/27/24 at 09:00; Stop 10/27/24 at 08:59 Home Med (Glucos Sul 2Kcl/ MSM/Chond/C/Mn (Glucosam... DAILY PO; Start 09/27/24 at 09:00; Stop 10/27/24 at 08:59 Lamotrigine 200 mg DAILY PO Last administered on 09/28/24at 08:50; Start 11/28/23 at 09:00; Stop 10/27/24 at 08:59 Metformin HCl 1,000 mg BID PO Last administered on 09/28/24at 08:49; Start 09/26/24 at 21:00; Stop 10/26/24 at 20:59 Home Med (Olanzapine 30 MG) HS PO; Start 09/26/24 at 21:00; Stop 10/26/24 at 20:59 Losartan Potassium 100 mg DAILY PO Last administered on 09/28/24at 08:49; Start 09/27/24 at 09:00; Stop 10/27/24 at 08:59 Home Med (Potassium Gluconate 90 MG) AM PO; Start 09/27/24 at 09:00; Stop 10/27/24 at 08:59 Home Med (Semaglutide (Ozempic) 0.25 MG) QWEEK SQ; Start 10/03/24 at 09:00; Stop 11/02/24 at 08:59 Sumatriptan Succinate 50 mg DAILY PRN PO; Start 09/26/24 at 10:00; Stop 10/26/24 at 09:59 Home Med (Ubidecarenone (Co Q-10) 10 MG) DAILY PO; Start 09/27/24 at 09:00; Stop 10/27/24 at 08:59 Home Med (Valbenazine Tosylate (Ingrez... DAILY PO; Start 09/27/24 at 09:00; Stop 10/27/24 at 08:59 Ondansetron HCl 4 mg STK-MED ONCE .ROUTE; Start 09/26/24 at 09:22; Stop 09/26/24 at 09:22; Status DC Dexamethasone Sodium Phosphate 10 mg STK-MED ONCE .ROUTE; Start 09/26/24 at 09:22; Stop 09/26/24 at 09:22; Status DC Rocuronium [place] 50 mg STK-MED ONCE .ROUTE; Start 09/26/24 at 09:39; Stop 09/26/24 at 09:39; Status DC Phenylephrine HCl 10 mg STK-MED ONCE IV; Start 09/26/24 at 09:44; Stop 09/26/24 at 09:45; Status DC Glycopyrrolate 1 mg STK-MED ONCE .ROUTE; Start 09/26/24 at 11:31; Stop 09/26/24 at 11:31; Status DC Neostigmine Methylsulfate 10 mg STK-MED ONCE IV; Start 09/26/24 at 11:31; Stop 09/26/24 at 11:31; Status DC Meperidine HCl 25 mg STK-MED ONCE .ROUTE Last administered on 09/26/24at 13:04; Start 09/26/24 at 13:00; Stop 09/26/24 at 13:00; Status DC Ketorolac Tromethamine 15 mg STK-MED ONCE .ROUTE; Start 09/26/24 at 13:07; Stop 09/26/24 at 13:07; Status DC KAROL CADET MD Sep 28, 2024 14:12
--- NOTE | 2024-09-28 16:00 | NUR ---
ORTHO COORDINATOR: REINFORCED TEACHING. PATIENT IN BED, SIGNIFICANT OTHER AT BEDSIDE. PATIENT UP TO SHOWER TODAY. PAIN LEVEL EXPECTED AFTER PERIODS OF ACTIVITY. REHAB STILL PENDING APPROVAL. INSTRUCTED PATIENT TO HAVE NURSE PREMEDICATED PRIOR TO DEPARTURE. PATIENT ENCOURAGED TO CONTINUE INCENTIVE SPIROMETRY AND FOOT FLEXION AND EXTENSION EXERCISES WHILE IN REHAB AND ONCE DISCHARGED HOME. PATIENT VERBALIZED UNDERSTANDING TO ALL INSTRUCTIONS.
[2024-09-29] VITALS: BP 112/57; PULSE 96; RESP 18; TEMP 98.3
[2024-09-29 04:00] VITALS: BP 116/70; PULSE 84; RESP 16; TEMP 98.1
[2024-09-29] MEDS: SUMATRIPTAN SUCCINATE 25 MG PO PRN (06:24)
--- NOTE | 2024-09-29 06:27 | NUR ---
REFUSAL: PT REFUSED TO BE SAT UP IN CHAIR PER DOCTOR'S ORDERS. PT STATES HE HAS "BAD HEADACHE." IMITREX PO PRN GIVEN. STATES ONCE HEADACHE IS GONE HE WILL SIT IN THE CHAIR.
[2024-09-29 08:00] VITALS: O2SAT 97
[2024-09-29 08:13] VITALS: BP 115/68; PULSE 85; RESP 19; TEMP 98
[2024-09-29] MEDS ORDERED: BisaCODYL 10 MG SUPP.RECT RC PRN (09:30)
--- NOTE | 2024-09-29 11:22 | NUR ---
JOSE NOTE: BARRY SMALL APPROVAL CM SPOKE TO DANTE W/BARRY SMALL, PT HAS APPROVAL, REP AWARE PT WILL NEED FACILITY VAN FOR TRANSFER. PRIMARY NURSE INGRID MADE AWARE. DR PEREZ UPDATED. CM TO CONTINUE TO FOLLOW UP. Addendum: 09/29/24 at 1123 by VIOLET ESCAMILLA LVN CM Amended: Links added.
[2024-09-29 12:11] VITALS: BP 116/57; PULSE 90; RESP 19; TEMP 97.6
--- NOTE | 2024-09-29 12:45 | NUR ---
PATIENT D/C AND TRANSFERRED TO [facility]. SURGICAL DRESING REMOVED PER ORDER. INCISION IS CLEAN AND INTACT. NO DRAINAGE NOTED. SLIGHT PURPLE DISCOLORATION PRESENT AROUND LOWER INCISION SITE. PATIENT CURRENTLY DENIES PAIN. IV REMOVED. REPORT CALLED TO [facility]. 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
== END 2024-09-29 15:55 ==
LOC: DAH 07:49 → DAHIP 07:50 → DAH 07:50 → 4DH 13:45
PROVIDERS: ADMIT Student in an Organized Health Care Education/Training Program; ATTEND Student in an Organized Health Care Education/Training Program
DX: M16.11 Unilateral primary osteoarthritis, right hip (principal); G89.18 Other acute postprocedural pain; D62 Acute posthemorrhagic anemia; I95.9 Hypotension, unspecified; E11.9 Type 2 diabetes mellitus without complications; E78.5 Hyperlipidemia, unspecified; I10 Essential (primary) hypertension; F31.9 Bipolar disorder, unspecified; Z88.0 Allergy status to penicillin; Z79.899 Other long term (current) drug therapy
CPT/HCPCS: 82040; 80048 ×2; 85025; 85610; 85730; 84134; 86140; 36415 ×2; 93005; 87641; 64447; 27130; 96374; 96376 ×2; 96375; 82948 ×15; 73503; 73521; 97161; 97530 ×8; 85027; 97116 ×5; G0378 ×71; C1776; J3490 ×7; J3010; J0690 ×4; J1100; J7030; J2003; J2704; J2405; J2710; J2175; J2795; J1885 ×3; J2371; A4649 ×2; A4930; A6255; A5120; A4215; A4223; A4222; A4221; A4663